=== PATIENT | female | born 1970 | race Caucasian/White ===

== ENCOUNTER 2017-07-17 08:35 | Emergency (ER) | payer SELFPAY | END 2017-07-17 09:00 | disposition home or self-care (01) | LOC: ERS 08:35 | DX: K02.9 Dental caries, unspecified (principal); F41.9 Anxiety disorder, unspecified; F32.9 Major depressive disorder, single episode, unspecified; F17.210 Nicotine dependence, cigarettes, uncomplicated | CPT/HCPCS: 99282 ==

== ENCOUNTER 2017-07-26 13:56 | Emergency (ER) | payer MEDICAID, SELFPAY ==
[2017-07-26 14:30] LABS: #Basophils 0.1 thou/uL (0.0-0.2); #Eosinphils 0.1 thou/uL (0.0-0.7); #Monocytes 0.5 thou/uL (0.11-0.59); #Neutrophils 5.8 thou/uL (1.40-6.50); %Basophils 0.9 % (0.0-1.0); %Eosinophils 0.6 % (0.0-10.0); %Lymphocytes 23.3 % (21.0-51.0); %Monocytes 5.7 % (0.0-10.0); Hematocrit 42.8 % (36.0-47.0); Mean Platelet Volume 6.8 fL (7.4-10.4); Red Blood Cell (RBC) Count 4.64 mill/uL (4.20-5.40); White Blood Cell (WBC) Count 8.4 thou/uL (4.8-10.8)
--- NOTE | 2017-07-26 14:53 | RAD ---
FRONTAL VIEW CHEST: Date: 07/26/17 COMPARISON: 06/01/11. INDICATION: Pain. FINDINGS: There is no consolidation, effusion, or pneumothorax. Cardiac silhouette is accentuated by portable t echnique. Chest otherwise grossly stable. IMPRESSION: No focal consolidation. POS: [facility]
[2017-07-26 14:57] LABS: ALT (SGPT) 12 U/L (8-55); AST (SGOT) 14 U/L (5-34); Alkaline Phosphatase 66 U/L (40-150); Anion Gap 13 mmol/L (10-20); BUN (Urea Nitrogen) 7 mg/dL (7.0-18.7); Bilirubin, Total 0.5 mg/dL (0.2-1.2); Calc. Creatinine Clearance 0 mL/min (70-130); Calcium 9.5 mg/dL (7.8-10.44); Carbon Dioxide 24 mmol/L (22-29); Chloride 105 mmol/L (98-107); Estimated GFR-MDRD 84; Globulin 3.5 g/dL (2.4-3.5); Protein, Total 7.6 g/dL (6.0-8.3); Troponin I 0.012 ng/mL (< 0.028)
== END 2017-07-26 16:52 | disposition home or self-care (01) ==
LOC: ERS 13:56
DX: R41.82 Altered mental status, unspecified (principal); T43.595A Adverse effect of other antipsychotics and neuroleptics, initial encounter; F41.9 Anxiety disorder, unspecified; F32.9 Major depressive disorder, single episode, unspecified; F20.9 Schizophrenia, unspecified; F17.210 Nicotine dependence, cigarettes, uncomplicated
CPT/HCPCS: 71010; 80053; 82553; 84484; 85025; 93005; 96360

== ENCOUNTER 2017-12-14 14:30 | Emergency (ER) | payer MEDICAID, SELFPAY ==
[2017-12-14] MEDS ORDERED: Lorazepam 2 MG/ML VIAL ONE (14:34)
[2017-12-14 15:12] LABS: #Basophils 0.1 thou/uL (0.0-0.2); #Eosinphils 0.1 thou/uL (0.0-0.7); #Monocytes 0.7 thou/uL (0.11-0.59); #Neutrophils 4.8 thou/uL (1.40-6.50); %Basophils 0.8 % (0.0-1.0); %Eosinophils 1.9 % (0.0-10.0); %Lymphocytes 25.5 % (21.0-51.0); %Monocytes 9.7 % (0.0-10.0); %Neutrophils 62.2 % (42.0-75.0); Hemoglobin 14.2 g/dL (12.0-16.0); Mean Corpuscular Hemoglobin 31.1 pg (27.0-31.0); Mean Corpuscular Volume 91.6 fl (81.0-99.0); Mean Platelet Volume 7.4 fL (7.4-10.4); Platelet Count 253 thou/uL (130-400); RBC Distribution Width 11.6 % (11.5-14.5); Red Blood Cell (RBC) Count 4.55 mill/uL (4.20-5.40); White Blood Cell (WBC) Count 7.7 thou/uL (4.8-10.8)
[2017-12-14 15:29] LABS: Bilirubin Negative (Negative); Blood, Urine Large (Negative); Clarity CLOUDY (Clear); Glucose, Urine (Dipstick) Negative (Negative); Leukocyte Negative (Negative); Nitrite Negative (Negative); Protein, Urine (Dipstick) 30 mg/dL (Neg-Trace); Specific Gravity, Urine 1.021 (1.002-1.036); Urobilinogen 0.2 mg/dL (0.2-1.0); pH, Urine 6.5 (5.0-9.0)
[2017-12-14 15:32] LABS: Bacteria/HPF None Seen HPF (None Seen); Hyaline Casts/LPF 4-6 HYALINE CAST LPF (0-3 Hyaline); RBC/HPF GREATER THAN 50-TNTC HPF (0-3)
--- NOTE | 2017-12-14 15:33 | CT ---
CT ABDOMEN AND PELVIS WITHOUT IV CONTRAST: Date: 12/14/17 Multiple axial tomograms obtained through abdomen and pelvis without IV contrast enhancement. HISTORY: Right flank pain. FINDINGS: Lung bases are clear. Liver, spleen, and pancreas are unremarkable. Mild right hydronephrosis is noted. There is mild columning of the right ureter. There is a small doreen culus in the mid right ureter measuring in the 3-4 mm range. Small bowel loops unremarkable. Images through the pelvis reveal a cystic mass in the upper right pelvis. There appear to be two javier cent cysts or possibly one larger loculated cystic mass measuring up to 5.0 cm. There is a dense calc ification along the edge of this mass with the calcification measuring up to 1.0 cm. This raises the possibility of a dermoid tumor given the appearance of calcification and complex nature. Uterus appea rs unremarkable by CT. No free fluid. IMPRESSION: 1. Small calculus in mid right ureter producing mild right hydronephrosis. 2. A complex cystic mass in the right pelvis with an internal calcification. Dermoid should be exclu ded. Consider further evaluation with elective pelvic MRI. POS: [facility]
[2017-12-14 15:39] LABS: Amphetamine Detected (NotDetected); Barbiturates Screen Not Detected (NotDetected); Benzodiazepine Screen Not Detected (NotDetected); Cocaine Metabolite Screen Not Detected (NotDetected); Medtox Control Line Valid? VALID (VALID); Medtox Reader # READER 4; Methadone Not Detected (NotDetected); Methamphetamine Not Detected (NotDetected); Opiate Screen Not Detected (NotDetected); Oxycodone Screen Not Detected (NotDetected); Phencyclidine (PCP) Not Detected (NotDetected); THC/Cannabinoid Screen Not Detected (NotDetected); Tricyclic Screen Not Detected (NotDetected)
[2017-12-14 15:42] LABS: Crystals/HPF 1+ AMORPH URATES HPF (Negative); Renal Epithelial None Seen HPF (0-3); Transitional Epithelial NONE SEEN HPF (0-3)
[2017-12-14 15:42] LABS: BHCG - Serum Negative (NEGATIVE); Pregs Control Background? CLEAR/WHITE (CLR/WHITE); Pregs Control Bar Appear? YES (CONTROL BAR)
[2017-12-14 15:51] LABS: ALT (SGPT) 10 U/L (8-55); AST (SGOT) 14 U/L (5-34); Alkaline Phosphatase 64 U/L (40-150); Anion Gap 16 mmol/L (10-20); BUN (Urea Nitrogen) 12 mg/dL (7.0-18.7); Bilirubin, Total 0.5 mg/dL (0.2-1.2); CK (CPK) 119 U/L (29-168); Calc. Creatinine Clearance 0 mL/min (70-130); Calcium 8.9 mg/dL (7.8-10.44); Carbon Dioxide 21 mmol/L (22-29); Chloride 108 mmol/L (98-107); Estimated GFR-MDRD 74; Glucose 91 mg/dL (70-105); Potassium 3.7 mmol/L (3.5-5.1); Sodium 140 mmol/L (136-145)
--- NOTE | 2017-12-14 16:33 | ULT ---
PELVIC ULTRASOUND INCLUDING TRANSABDOMINAL AND VASCULAR DUPLEX WITH COLOR AND SPECTRAL DOPPLER IMAGIN 12/14/17 HISTORY: 47-year-old female with history of right flank pain. COMPARISON: CT scan 12/14/17. The uterus measures 8.1 x 4.3 x 4.4 cm with an endometrium of 0.7 cm in thickness. Definitive normal right ovary and left ovaries were not seen. There is a somewhat septated appearing mostly cystic mass more so in the right adnexal region measuring 4.3 x 4.9 x 5.3 cm corresponding to the mass on prior CT. The calcification/ossification seen on the CT scan are not seen on this study. IMPRESSION: Nonspecific multiseptated cystic mass in the right adnexal region. This does not give any additional information to the prior CT. Based on the prior CT, this certainly could represent a cystic dermoid o r teratoma. Followup gynecologic consultation and for additional imaging. A followup MRI is recommend ed as per the prior CT. POS: [facility]
== END 2017-12-14 20:56 | disposition home or self-care (01) ==
LOC: ERS 14:30
DX: N13.2 Hydronephrosis with renal and ureteral calculous obstruction (principal); N83.9 Noninflammatory disorder of ovary, fallopian tube and broad ligament, unspecified; F19.10 Other psychoactive substance abuse, uncomplicated; F17.210 Nicotine dependence, cigarettes, uncomplicated; Z79.899 Other long term (current) drug therapy
CPT/HCPCS: 36415; 51701; 74176; 76856; 80053; 80306; 81003; 81015; 82550; 84703; 85025; 96361; 96374; 96375; A4353; J2060

== ENCOUNTER 2018-11-27 17:49 | Emergency (ER) | payer SELFPAY ==
[2018-11-27] MEDS ORDERED: Ketorolac Tromethamine 60 MG/2 ML VIAL ONE (18:22)
--- NOTE | 2018-11-27 18:56 | RAD ---
RIGHT HAND THREE VIEWS: HISTORY: Injury. Boxer fracture. COMPARISON: 02/27/2015 FINDINGS: Moderately displaced, comminuted fracture through the proximal 5th metacarpal, without overt dislocat ion. This fracture appears to extend into the hamate 5th metacarpal joint. Deformity of the proxima l phalanx of the 5th finger, evidence for a healed fracture. Incompletely united fracture through the mid scaphoid bone with minimal abnormal widening of the scap holunate space, although this appears to be stable from the prior study. IMPRESSION: 1. Acute, minimally comminuted, oblique fracture through the base of the 5th metacarpal, probably ex tending into the hamate 5th metacarpal joint, with up to 4 mm of displacement and some foreshortening , evidence for an old stable appearing mid scaphoid fracture and abnormal widening of the scapholunat e space. 2. Healed proximal phalanx fracture. POS: [facility]
== END 2018-11-27 19:55 | disposition home or self-care (01) ==
LOC: ERS 17:49
DX: S62.316A Displaced fracture of base of fifth metacarpal bone, right hand, initial encounter for closed fracture (principal); I10 Essential (primary) hypertension; F17.210 Nicotine dependence, cigarettes, uncomplicated; F41.9 Anxiety disorder, unspecified; F32.9 Major depressive disorder, single episode, unspecified; Z79.899 Other long term (current) drug therapy; X58.XXXA Exposure to other specified factors, initial encounter
CPT/HCPCS: 26600; 96372; J1885

== ENCOUNTER 2018-12-08 15:54 | Emergency (ER) | payer SELFPAY ==
[2018-12-08] MEDS ORDERED: Ketorolac Tromethamine 30 MG/ML VIAL ONE (17:21)
--- NOTE | 2018-12-08 18:30 | RAD ---
RIGHT WRIST THREE VIEWS: History: Pain, follow up injury. FINDINGS: Stent material stabilizing the wrist. There is a minimal displaced comminuted fracture involving the base of the fifth metacarpal with some bony callus. There is some displacement and minimal malalignme nt. This fracture appears to extend into the hamate metacarpal joint. Old stable navicular fracture. Minimal degenerative and osteoarthrosis changes. IMPRESSION: Minimally displaced oblique comminuted fracture through the base of the fifth metacarpal with some ramón ny callus. Minimal malalignment and foreshortening. Fracture does extend into the fifth metacarpal duenas mate joint. Stable old navicular fracture. Orthopedic follow up should be considered in regards to the proximal f ifth metacarpal fracture. POS: [facility]
--- NOTE | 2018-12-08 18:32 | RAD ---
RIGHT HAND THREE VIEWS: History: Follow up fracture. Comparison: 11-27-18 FINDINGS: Evidence for a healing fracture, comminuted with some foreshortening through the base of the fifth me tacarpal with some bony callus. Old healed deformity of the proximal phalanx of the fifth finger. Old stable navicular fracture. IMPRESSION: Comminuted fracture of the base of the fifth metacarpal with comminution with extension into the carp al metacarpal joint and some bony callus. Consider orthopedic follow up. Other findings as above. POS: [facility]
== END 2018-12-08 18:30 | disposition home or self-care (01) ==
LOC: ERS 15:54
DX: M25.531 Pain in right wrist (principal); F17.210 Nicotine dependence, cigarettes, uncomplicated; F41.9 Anxiety disorder, unspecified; F32.9 Major depressive disorder, single episode, unspecified; F20.9 Schizophrenia, unspecified; Z79.899 Other long term (current) drug therapy; Z79.891 Long term (current) use of opiate analgesic; W19.XXXA Unspecified fall, initial encounter
CPT/HCPCS: 29125; 96372; J1885

== ENCOUNTER 2019-04-30 08:20 | Outpatient (CLI) | payer OTHER ==
[2019-04-30 15:07] LABS: Mean Corpuscular HGB CONC 34.7 g/dL (32.0-36.0); Mean Corpuscular Hemoglobin 31.4 pg (27.0-31.0); Mean Corpuscular Volume 90.5 fL (78.0-98.0); Mean Platelet Volume 7.4 fL (7.4-10.4); Platelet Count 294 thou/uL (130-400); RBC Distribution Width 11.6 % (11.5-14.5); Red Blood Cell (RBC) Count 4.77 mill/uL (4.20-5.40); White Blood Cell (WBC) Count 6.6 thou/uL (4.8-10.8)
[2019-04-30 15:16] LABS: BHCG - Serum Negative (NEGATIVE); Pregs Control Background? CLEAR/WHITE (CLR/WHITE); Pregs Control Bar Appear? YES (CONTROL BAR)
[2019-04-30 15:21] LABS: Anion Gap 16 mmol/L (10-20); BUN (Urea Nitrogen) 11 mg/dL (7.0-18.7); Calc. Creatinine Clearance 0 mL/min (70-130); Calcium 9.5 mg/dL (7.8-10.44); Carbon Dioxide 28 mmol/L (22-29); Chloride 100 mmol/L (98-107); Estimated GFR-MDRD 77; Glucose 88 mg/dL (70-105); Potassium 3.7 mmol/L (3.5-5.1); Sodium 140 mmol/L (136-145)
== END 2019-04-30 08:21 | disposition home or self-care (01) ==
LOC: LABBT 08:20
PROVIDERS: ATTEND Obstetrics & Gynecology
DX: Z01.812 Encounter for preprocedural laboratory examination (principal); N83.8 Other noninflammatory disorders of ovary, fallopian tube and broad ligament
CPT/HCPCS: 80048; 84703; 85027; 86850; 86900; 86901; 93005; 93010

== ENCOUNTER 2019-05-06 11:53 | Day surgery (SDC) | payer OTHER ==
[2019-04-30 13:49] VITALS: BMI 24.0
--- NOTE | 2019-05-06 07:33 | HP ---
REASON FOR ADMISSION: Complex right adnexal mass. SCHEDULED PROCEDURE: Laparoscopic right salpingo-oophorectomy with da Re. HISTORY OF PRESENT ILLNESS: Ms. Saravia is a 48-year-old 4, para 2, x2, who first came to see me in November. She has had a persistent complex right adnexal mass that seems to be consistent with a small dermoid in her right ovary with calcifications and a persistent hydrosalpinx. No free fluid was noted. OBSTETRICAL AND GYNECOLOGICAL HISTORY: x2. No history of dysplasia or STD. No family history of ovarian cancer. No bloating or change in bowel or bladder habits. MEDICAL HISTORY: None. SURGICAL HISTORY: Tubal ligation. ALLERGIES: DENIES. MEDICATIONS: Hydrochlorothiazide p.r.n. SOCIAL HISTORY: The patient is a tobacco user. FAMILY HISTORY: Noncontributory. REVIEW OF SYSTEMS: Noncontributory. PHYSICAL EXAMINATION: GENERAL: White female. VITAL SIGNS: 5 feet 11, 193, BMI 27. Blood pressure 140/84, pulse 87. HEENT: Within normal limits. LUNGS: Clear to auscultation bilaterally. HEART: Regular rhythm. BREASTS: Without masses bilaterally. ABDOMEN: Soft, nontender without rebound or guarding. PELVIC: Vulva without lesions. Vagina without discharge. Cervix parous. Uterus; anteverted, smooth, deviated slightly to the left. Palpable fullness on the right with a 5 cm mass, nontender. EXTREMITIES: No clubbing, cyanosis, or edema. DIAGNOSTIC STUDIES: Ultrasound with findings as noted. IMPRESSION: Complex hydrosalpinx with possible dermoid on the right, persistent. PLAN: Laparoscopic right salpingo-oophorectomy with da Re. The patient understands risks and benefits of procedure. We will administer appropriate antibiotic and DVT prophylaxis. Job ID: [id number]
[2019-05-06] MEDS ORDERED: Fentanyl 100 MCG/2 ML VIAL ONE (13:24)
[2019-05-06] MEDS ORDERED: Bupivacaine HCl 0.5%/Epinephrine 1:200,000/PF 30 ml Vial ONE (13:24)
[2019-05-06] MEDS ORDERED: Famotidine/PF 20 mg/2ml Vial ONE (13:32)
[2019-05-06] MEDS ORDERED: Midazolam HCl 2 mg/2 ml Vial ONE (13:32)
[2019-05-06] MEDS ORDERED: CeleCOXIB 100 MG CAP ONE (13:32)
[2019-05-06] MEDS ORDERED: Gabapentin 300 MG CAP ONE (13:32)
[2019-05-06] MEDS ORDERED: HYDROcodone/Acetaminophen 5/325 mg Tablet ONE (18:26)
--- NOTE | 2019-05-06 21:01 | OP ---
DATE OF PROCEDURE: 05/06/2019 PREOPERATIVE DIAGNOSIS: Complex right adnexal mass with calcifications suspicious for hydrosalpinx with possible dermoid. POSTOPERATIVE DIAGNOSES: Normal appearing right fallopian tube with complex cystic right ovary with adhesions to pelvic sidewall, possible dermoid versus granulomatous disease of the ovary. PROCEDURE: Da Re laparoscopic right salpingo-oophorectomy. EXHIBIT CLEANER: MIKE Colon. ANESTHESIA: General endotracheal. ESTIMATED BLOOD LOSS: Less than 10 mL. COMPLICATIONS: None. OPERATIVE FINDINGS: 1. Normal-appearing uterus and left tube and ovary. 2. Right tube within normal limits with adherent multi-cystic right ovary with clear fluid noted in the posterior ovarian fossa along the broad ligament. 3. Normal-appearing ureter on the right. 4. Hemostasis, clear urine at the end of the procedure. DISPOSITION: Recovery room in good condition. DESCRIPTION OF PROCEDURE: After obtaining appropriate informed consent, the patient was taken to the operating room. Appropriate antibiotic and DVT prophylaxis were achieved. The patient was prepped and draped in dorsal lithotomy in Ancelmo stirrups. Sliding speculum was placed in the vagina. Cervix was identified. Hulka manipulator was placed inside. Patel catheter was placed. Speculum was removed from the patient. Blocker Hand changed gloves, turned his attention to abdominal portion of the procedure. A 5 mL of Marcaine was injected at the base of the umbilicus, and a 12 mm skin incision was made. Veress needle was placed inside the abdominal cavity. Insufflation was carried out with carbon dioxide for a maximum pressure of 15 voluming approximately 3.5 L. An 11 mm Mg balloon trocar was placed without difficulty. Inspection confirmed entry into the peritoneal cavity without trauma to the underlying viscera. The right and left lateral da Re trocars were placed under direct visualization as well as 5 mm clinical trials assistant port in the right upper quadrant. The patient was placed in steep Trendelenburg position and the da Re was docked. Monopolar scissors were placed in the right hand and bipolar fenestrated forceps in the left. Findings as noted in the operative findings were noted. The fallopian tube on the right was taken off, coagulating the mesosalpinx and transecting it. The IP was easily identified on the right. The ureters crossing over the pelvic brim and going down to the pelvis and going underneath the uterine vessel on the right was identified as well. This was noted to be approximately 1 cm slightly more lateral to the most lateral aspect of the adhesions of the right ovary. The utero-ovarian ligament was easily identified on the right as well. It was coagulated and transected. The IP was then coagulated and transected adjacent to the ovary. The ovary was grasped and was bluntly and sharply dissected off the pelvic sidewall of this level of the adhesions using monopolar scissors and traction. There was noted to be overlying the uterine vessels on the right. After they had crossed over the ureter, we were inserting along the cardinal ligament posteriorly. Surgeon using meticulous technique was able to dissect the ovary and its adhesions free from the vessel without interrupting it. The specimen was completely amputated and placed in the cul-de-sac of Bc for retrieval. Da Re robot was undocked after removing the instruments, and a 10 mm retrieval sac was placed in the abdominal cavity with the 8 mm scope placed laterally. Both the tube and ovary were placed in the sac and it was retrieved through the umbilical trocar site. The abdomen was desufflated of carbon dioxide. All trocars were removed. Fascia at the umbilicus was reapproximated using 0 Vicryl on a UR5 needle. Skin was reapproximated x4 using 4-0 Monocryl and Dermabond. Hulka was removed from the vagina. The vagina was noted to be dry. Patel catheter was removed. The patient was awakened, extubated, and taken to recovery room in good condition. Job ID: [id number]
== END 2019-05-06 19:20 | disposition home or self-care (01) ==
LOC: EEVIPCON 11:53 → SDC 11:53 → EEVIPCON 13:30 → SDC 19:20
PROVIDERS: ATTEND Obstetrics & Gynecology
PROC: 0UT04ZZ Resection of Right Ovary, Percutaneous Endoscopic Approach (ICD-10-PCS; principal; 2019-05-06)
PROC: 0UT54ZZ Resection of Right Fallopian Tube, Percutaneous Endoscopic Approach (ICD-10-PCS; principal; 2019-05-06)
DX: D27.0 Benign neoplasm of right ovary (principal); D28.2 Benign neoplasm of uterine tubes and ligaments
CPT/HCPCS: 88307; J0670; J0690; J2250; J3010; S0028

== ENCOUNTER 2019-05-09 16:52 | Emergency (ER) | payer SELFPAY ==
[~2019-05-09 16:52] MED LIST: ISOVUE-370 76%-LOCM 1 ML ONE
[2019-05-09 18:03] LABS: Bacteria/HPF 3+ HPF (None Seen); Bilirubin Negative (Negative); Blood, Urine 2+ (Negative); Clarity Turbid (Clear); Glucose, Urine (Dipstick) Normal (Negative); Leukocyte Negative Leu/uL (Negative); Nitrite Negative (Negative); Protein, Urine (Dipstick) Negative (Neg-Trace); Squamous Epithelial 0-3 HPF (0-3); Urobilinogen Normal mg/dL (Less than 2)
[2019-05-09] MEDS ORDERED: Ondansetron PF 4 MG/2 ML Vial ONE (18:23)
[2019-05-09] MEDS ORDERED: Morphine 4 MG/ML VIAL ONE (18:23)
--- NOTE | 2019-05-09 18:27 | CT ---
CT OF ABDOMEN AND PELVIS PERFORMED WITH CONTRAST ENHANCEMENT: 05/09/19 HISTORY: Patient had laparoscopic surgery on Saturday for ovarian cyst. Reports vaginal bleeding. Abdominal p ain. Lung bases are clear. The liver and spleen show no focal abnormalities. Spleen is 11.3 cm in length. The right lobe of the liver is somewhat elongated. Pancreas and gallbladder regions appear unremarkable. Right and left adrenal glands and right and left kidneys are normal in size. No obstruction. No free fluid seen within the abdomen. Postop changes are seen. There is air in the paraumbilical region. There is no evidence of any signif icant free fluid within the pelvis. No signs of any type of pelvic hematoma. Complex cystic lesion in volving the right ovary no longer definitively seen on this exam. Appendix region appears unremarkabl e. IMPRESSION: 1. No acute findings of the abdomen or pelvis. 2. Borderline spleen size. POS: [facility]
[2019-05-09 18:44] LABS: #Eosinphils 0.1 thou/uL (0.0-0.7); #Lymphocytes 1.7 thou/uL (1.20-3.40); #Monocytes 0.4 thou/uL (0.11-0.59); #Neutrophils 3.4 thou/uL (1.40-6.50); %Basophils 0.6 % (0.0-1.0); %Eosinophils 1.7 % (0.0-10.0); %Lymphocytes 30.2 % (21.0-51.0); %Monocytes 6.7 % (0.0-10.0); %Neutrophils 60.8 % (42.0-75.0); Hemoglobin 11.3 g/dL (12.0-16.0); Mean Corpuscular HGB CONC 34.2 g/dL (32.0-36.0); Mean Corpuscular Hemoglobin 31.5 pg (27.0-31.0); Mean Corpuscular Volume 92.2 fL (78.0-98.0); Mean Platelet Volume 7.3 fL (7.4-10.4); Platelet Count 221 thou/uL (130-400); RBC Distribution Width 11.5 % (11.5-14.5); Red Blood Cell (RBC) Count 3.59 mill/uL (4.20-5.40); White Blood Cell (WBC) Count 5.5 thou/uL (4.8-10.8)
[2019-05-09 19:09] LABS: ALT (SGPT) 22 U/L (8-55); AST (SGOT) 22 U/L (5-34); Albumin 3.5 g/dL (3.5-5.0); Alkaline Phosphatase 63 U/L (40-110); Anion Gap 9 mmol/L (10-20); BUN (Urea Nitrogen) 9 mg/dL (7.0-18.7); Bilirubin, Total 0.3 mg/dL (0.2-1.2); Calc. Creatinine Clearance 0 mL/min (70-130); Calcium 8.5 mg/dL (7.8-10.44); Carbon Dioxide 27 mmol/L (22-29); Chloride 108 mmol/L (98-107); Estimated GFR-MDRD 60; Globulin 2.5 g/dL (2.4-3.5); Glucose 92 mg/dL (70-105); Lipase 25 U/L (8-78); Potassium 3.9 mmol/L (3.5-5.1); Sodium 140 mmol/L (136-145)
== END 2019-05-09 19:47 | disposition home or self-care (01) ==
LOC: ERS 16:52
DX: N93.9 Abnormal uterine and vaginal bleeding, unspecified (principal); G89.29 Other chronic pain; F41.9 Anxiety disorder, unspecified; F32.9 Major depressive disorder, single episode, unspecified; F20.9 Schizophrenia, unspecified; F17.210 Nicotine dependence, cigarettes, uncomplicated; Z79.899 Other long term (current) drug therapy; Z79.1 Long term (current) use of non-steroidal anti-inflammatories (NSAID)
CPT/HCPCS: 74177; 80053; 81003; 81015; 83690; 85025; 96361; 96374; 96375; J2270; J2405

== ENCOUNTER 2019-06-28 12:22 | Emergency (ER) | payer SELFPAY ==
--- NOTE | 2019-06-28 13:06 | RAD ---
Exam:2 views right forearm HISTORY: Fall. Pain. COMPARISON: None FINDINGS: Undisplaced distal ulnar diaphyseal fracture. Chronic changes of the base of the fifth metacarpal IMPRESSION: Distal ulnar fracture.
--- NOTE | 2019-06-28 13:21 | CT ---
CT BRAIN NONCONTRAST: DATE: 06/28/2019 HISTORY: 48-year-old female status post acute head trauma due to fall from horse 3 days ago. Persistent posttr aumatic headache. FINDINGS: There is no evidence of acute intra-axial or extra-axial hemorrhage. There is no midline shift or any other mass effect. There is no extra-axial fluid collection. There is no evidence of obstructive hydrocephalus. Calvarium is intact. Moderately large region of encephalomalacia and gliosis in the le ft cerebellar hemisphere IMPRESSION: 1. No acute intracranial findings. 2. 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
--- NOTE | 2019-06-28 13:23 | CT ---
CT CERVICAL SPINE WITHOUT CONTRAST: HISTORY: Trauma. Pain.. COMPARISON: None. FINDINGS: No craniocervical dissociation. Appropriate alignment of the lateral masses of C1 and C2. Intact odon toid process Appropriate alignment of the facets. Straightening of normal cervical lordosis may be due to patient position, muscle spasm or cervical co llar. Current study does not assess for ligamentous injury. There are bilateral remote pars defects at T7. No significant associated spondylolisthesis. Soft tissue neck structures: No mass, lymphadenopathy or hematoma. No prevertebral soft tissue swelli ng. Upper mediastinum and lung apices: Unremarkable. Central spinal canal: Neural foramina and central spinal canal are patent. Evaluation is limited by isrrael alba. Vertebral bodies: Cervical spine vertebral body height is maintained. No fracture. IMPRESSION: 1. No evidence of fracture. Remote bilateral facet fractures at C7 without associated spondylolisthes is. 2. Straightening of normal cervical lordosis as above. Transcribed Date/Time: 06/28/2019 1:30 PM
--- NOTE | 2019-06-28 13:31 | CT ---
MAXILLOFACIAL CT WITHOUT CONTRAST: HISTORY: Fall. Hit right forearm on countertop. Posttraumatic pain. COMPARISON: None. FINDINGS: Unremarkable brain parenchyma. Bilateral ocular lenses are appropriately located. Both globes are intact. Retrobulbar fat is preserv ed. Symmetric attenuation of the optic nerves and ocular rectus muscles. Adequate aeration of the visualized paranasal sinuses and mastoid air cells. Intact pterygoid plates. Intact zygomatic arches. Maxilla and mandible do not demonstrate any posttraumatic change. Extensive dental caries. No obvious masses in the oral cavity. Midline fatty raphae of the tongue is preserved. Bilaterally the ostiomeatal complexes are patent. Sandra bullosa involving the left and right superio r turbinates. No evidence of fracture with regards to the osseous margins of the sinuses or orbits. IMPRESSION: No posttraumatic changes. Transcribed Date/Time: 06/28/2019 1:36 PM
[2019-06-28] MEDS ORDERED: Ketorolac Tromethamine 30 MG/ML VIAL ONE (14:16)
== END 2019-06-28 14:30 | disposition home or self-care (01) ==
LOC: SCSER 12:22
DX: S52.201A Unspecified fracture of shaft of right ulna, initial encounter for closed fracture (principal); S09.90XA Unspecified injury of head, initial encounter; F41.9 Anxiety disorder, unspecified; F32.9 Major depressive disorder, single episode, unspecified; F20.9 Schizophrenia, unspecified; F17.210 Nicotine dependence, cigarettes, uncomplicated; Z79.899 Other long term (current) drug therapy; W19.XXXA Unspecified fall, initial encounter
CPT/HCPCS: 29105; 70450; 70486; 72125; 96372; J1885

== ENCOUNTER 2020-07-20 16:29 | Emergency (ER) | payer OTHER ==
[2020-07-20] MEDS ORDERED: risperiDONE 1 MG TAB ONE (19:17)
[2020-07-20] MEDS ORDERED: risperiDONE 1 MG TAB PO SCH (19:30)
[2020-07-20] MEDS ORDERED: RisperDAL M-TAB 1 MG TAB PO SCH (19:30)
[2020-07-20 19:39] LABS: ALT (SGPT) 13 U/L (8-55); AST (SGOT) 20 U/L (5-34); Acetaminophen Less than 6.0 mcg/mL (10.0-30.0); Albumin 4.3 g/dL (3.5-5.0); Alcohol Less than 10 mg/dL (Less than 10); Alkaline Phosphatase 68 U/L (40-110); Anion Gap 15 mmol/L (10-20); BUN (Urea Nitrogen) 12 mg/dL (7.0-18.7); Bilirubin, Total 0.8 mg/dL (0.2-1.2); Calc. Creatinine Clearance 0 mL/min (70-130); Calcium 9.7 mg/dL (7.8-10.44); Carbon Dioxide 25 mmol/L (22-29); Chloride 100 mmol/L (98-107); Globulin 3.5 g/dL (2.4-3.5); Glucose 96 mg/dL (70-105); Potassium 3.3 mmol/L (3.5-5.1); Protein, Total 7.8 g/dL (6.0-8.3); Salicylate Less than 8.0 mg/dL (15.0-30.0); Sodium 137 mmol/L (136-145)
[2020-07-20 19:41] LABS: Bilirubin Negative (Negative); Blood, Urine Negative (Negative); Clarity Clear (Clear); Glucose, Urine (Dipstick) Normal (Negative); Ketone, Urine Negative (Negative); Leukocyte Negative Leu/uL (Negative); Nitrite Negative (Negative); Protein, Urine (Dipstick) 10 mg/dL (Neg-Trace); Specific Gravity, Urine 1.019 (1.002-1.036); Urobilinogen Normal mg/dL (Less than 2); pH, Urine 6.5 (5.0-9.0)
[2020-07-20 21:05] LABS: Pregnancy Test - Urine (BHCG) Negative (Negative); Pregu Control Background? CLEAR/WHITE (CLR/WHITE); Pregu Control Bar Appear? YES (CONTROL BAR); Specific Gravity 1.019 (1.002-1.036)
[2020-07-20 22:25] LABS: #Basophils 0.1 thou/uL (0.0-0.2); #Lymphocytes 1.4 thou/uL (1.20-3.40); #Monocytes 0.7 thou/uL (0.11-0.59); #Neutrophils 4.4 thou/uL (1.40-6.50); %Basophils 1.2 % (0.0-1.0); %Eosinophils 0.7 % (0.0-10.0); %Lymphocytes 21.2 % (21.0-51.0); %Monocytes 10.3 % (0.0-10.0); %Neutrophils 66.7 % (42.0-75.0); Hemoglobin 14.6 g/dL (12.0-16.0); Mean Corpuscular HGB CONC 35.4 g/dL (32.0-36.0); Mean Corpuscular Hemoglobin 31.7 pg (27.0-31.0); Mean Corpuscular Volume 89.4 fL (78.0-98.0); Mean Platelet Volume 7.5 fL (7.4-10.4); Platelet Count 216 thou/uL (130-400); RBC Distribution Width 11.2 % (11.5-14.5); Red Blood Cell (RBC) Count 4.61 mill/uL (4.20-5.40); White Blood Cell (WBC) Count 6.6 thou/uL (4.8-10.8)
== END 2020-07-21 00:08 | disposition home or self-care (01) ==
LOC: ERS 16:29
DX: F20.9 Schizophrenia, unspecified (principal); I10 Essential (primary) hypertension; B19.20 Unspecified viral hepatitis C without hepatic coma; Z87.891 Personal history of nicotine dependence; Z79.899 Other long term (current) drug therapy
CPT/HCPCS: 80053; 80307; 81003; 81025; 84443; 85025; 93005

== ENCOUNTER 2020-09-15 20:33 | Emergency (ER) ==
--- NOTE | 2020-09-15 20:58 | RAD ---
Exam: XR Ankle Lt 3 View STANDARD HISTORY: Injury to left ankle after stepping in a hole. Patient states felt a pop. COMPARISON: 01/30/2016 FINDINGS: The ankle mortise is congruent. No fracture or dislocation is identified. Subcutaneous soft tissue swelling is seen at the lateral and anterior aspect of the left ankle. No ot her interval change from prior study. IMPRESSION: Subcutaneous soft tissue swelling without evidence of a fracture.
== END 2020-09-15 22:10 | disposition home or self-care (01) ==
LOC: ERS 20:33
DX: S93.402A Sprain of unspecified ligament of left ankle, initial encounter (principal); B19.20 Unspecified viral hepatitis C without hepatic coma; I10 Essential (primary) hypertension; F17.210 Nicotine dependence, cigarettes, uncomplicated; Z79.899 Other long term (current) drug therapy; X50.1XXA Overexertion from prolonged static or awkward postures, initial encounter

== ENCOUNTER 2020-10-09 19:17 | Emergency (ER) | payer SELFPAY ==
[2020-10-09 19:38] LABS: Bilirubin Negative (Negative); Blood, Urine Negative (Negative); Clarity Clear (Clear); Glucose, Urine (Dipstick) Normal (Negative); Ketone, Urine Negative (Negative); Leukocyte Negative Leu/uL (Negative); Nitrite Negative (Negative); Protein, Urine (Dipstick) Negative (Neg-Trace); Specific Gravity, Urine 1.015 (1.002-1.036); Urobilinogen Normal mg/dL (Less than 2); pH, Urine 5.5 (5.0-9.0)
[2020-10-09 20:26] LABS: #Basophils 0.1 thou/uL (0.0-0.2); #Eosinphils 0.1 thou/uL (0.0-0.7); #Lymphocytes 2.2 thou/uL (1.20-3.40); #Monocytes 0.8 thou/uL (0.11-0.59); #Neutrophils 4.8 thou/uL (1.40-6.50); %Eosinophils 1.9 % (0.0-10.0); %Lymphocytes 27.2 % (21.0-51.0); %Monocytes 10.2 % (0.0-10.0); %Neutrophils 59.7 % (42.0-75.0); Hemoglobin 13.3 g/dL (12.0-16.0); Mean Corpuscular HGB CONC 35.2 g/dL (32.0-36.0); Mean Corpuscular Hemoglobin 32.5 pg (27.0-31.0); Mean Corpuscular Volume 92.2 fL (78.0-98.0); Mean Platelet Volume 7.2 fL (7.4-10.4); Platelet Count 268 thou/uL (130-400); RBC Distribution Width 11.7 % (11.5-14.5)
[2020-10-09 20:39] LABS: ALT (SGPT) 11 U/L (8-55); AST (SGOT) 11 U/L (5-34); Albumin 3.8 g/dL (3.5-5.0); Alkaline Phosphatase 62 U/L (40-110); Anion Gap 14 mmol/L (10-20); BUN (Urea Nitrogen) 8 mg/dL (7.0-18.7); Bilirubin, Total 0.3 mg/dL (0.2-1.2); Calc. Creatinine Clearance 0 mL/min (70-130); Carbon Dioxide 29 mmol/L (22-29); Chloride 103 mmol/L (98-107); Globulin 3.1 g/dL (2.4-3.5); Glucose 83 mg/dL (70-105); Potassium 3.6 mmol/L (3.5-5.1); Protein, Total 6.9 g/dL (6.0-8.3); Sodium 142 mmol/L (136-145)
--- NOTE | 2020-10-09 22:12 | CT ---
Exam: Abdomen CT without contrast Pelvic CT without contrast HISTORY: Abdominal pain. Bilateral back pain. Symptoms x2 weeks. Urinary urgency. COMPARISON: None FINDINGS: Abdomen CT: Lung bases:Clear Heart size: Normal heart size Aorta: Normal caliber. No periaortic fat stranding Solid organs: Limited evaluation by the absence of intravenous contrast administration. Grossly no so lid organ abnormality Lymph nodes: No gastrohepatic, retrocrural or periportal lymphadenopathy Gallbladder: Contracted due to nonfasting state Mesentery: No mass, lymphadenopathy, free air or free fluid Kidneys: Bilaterally, no hydronephrosis, nephrolithiasis or perinephric fat stranding. Bilateral uret ers have a normal caliber. No hydroureter, periureteral fat stranding or ureterolithiasis. Alimentary canal: Limited evaluation by the absence of oral contrast. No evidence of a bowel obstruct ion. Normal ileocecal junction. Normal caliber appendix. Scattered fecal material in a nondistended, nondilated colon. CT PELVIS: No mass, adenopathy, free air or free fluid. 'S reproductive organs are grossly unremarkable Urinary bladder: Unremarkable. Osseous structures: No lytic or blastic lesions in the osseous structures. Vacuum disc phenomenon at L4-L5. Partial sacralization of L5 with pseudoarthrosis of the left and right L5 ala and the adjacent sacrum. Vacuum disc phenomenon the distal thoracic spine is noted. No evidence of a acute fr acture. IMPRESSION: 1. No acute abnormality in the abdomen or pelvis 2. No evidence of obstructive uropathy 3. Normal caliber appendix.
[2020-10-09] MEDS ORDERED: Ketorolac Tromethamine 30 MG/ML VIAL ONE (22:32)
== END 2020-10-09 22:47 | disposition home or self-care (01) ==
LOC: ERS 19:17
DX: K59.00 Constipation, unspecified (principal); I10 Essential (primary) hypertension; F17.210 Nicotine dependence, cigarettes, uncomplicated; Z79.899 Other long term (current) drug therapy
CPT/HCPCS: 36415; 74176; 80053; 81003; 83690; 85025; 87077; 87086; 87480; 87510; 87660; 96372; J1885

== ENCOUNTER 2021-01-31 18:52 | Observation (INO) | payer SELFPAY ==
[2021-01-31 19:44] LABS: #Lymphocytes 1.5 thou/uL (1.20-3.40); #Monocytes 1.1 thou/uL (0.11-0.59); #Neutrophils 10.3 thou/uL (1.40-6.50); %Basophils 0.2 % (0.0-1.0); %Eosinophils 0.3 % (0.0-10.0); %Lymphocytes 11.6 % (21.0-51.0); %Monocytes 8.3 % (0.0-10.0); %Neutrophils 79.6 % (42.0-75.0); Hemoglobin 13.9 g/dL (12.0-16.0); Mean Corpuscular HGB CONC 35.7 g/dL (32.0-36.0); Mean Corpuscular Hemoglobin 30.9 pg (27.0-31.0); Mean Corpuscular Volume 86.7 fL (78.0-98.0); Mean Platelet Volume 7.2 fL (7.4-10.4); Platelet Count 303 thou/uL (130-400); RBC Distribution Width 11.3 % (11.5-14.5); White Blood Cell (WBC) Count 12.9 thou/uL (4.8-10.8)
[2021-01-31 20:07] LABS: ALT (SGPT) 26 U/L (8-55); AST (SGOT) 46 U/L (5-34); Acetaminophen Less than 6.0 mcg/mL (10.0-30.0); Albumin 4.3 g/dL (3.5-5.0); Alcohol Less than 10 mg/dL (Less than 10); Alkaline Phosphatase 72 U/L (40-110); Anion Gap 18 mmol/L (10-20); BUN (Urea Nitrogen) 23 mg/dL (7.0-18.7); Bilirubin, Total 0.8 mg/dL (0.2-1.2); Calc. Creatinine Clearance 0 mL/min (70-130); Calcium 9.3 mg/dL (7.8-10.44); Carbon Dioxide 22 mmol/L (22-29); Chloride 98 mmol/L (98-107); Globulin 3.8 g/dL (2.4-3.5); Glucose 101 mg/dL (70-105); Protein, Total 8.1 g/dL (6.0-8.3); Salicylate Less than 8.0 mg/dL (15.0-30.0); Sodium 135 mmol/L (136-145)
[2021-01-31] MEDS ORDERED: Haloperidol Lactate 5 MG/ML VIAL ONE (20:20)
[2021-01-31] MEDS ORDERED: Lorazepam 2 MG/ML VIAL ONE (20:20)
[2021-01-31] MEDS ORDERED: Potassium Chloride 20 MEQ TAB ONE (21:50)
[2021-02-01 00:25] LABS: Anion Gap 12 mmol/L (10-20); BUN (Urea Nitrogen) 20 mg/dL (7.0-18.7); Calc. Creatinine Clearance 0 mL/min (70-130); Carbon Dioxide 24 mmol/L (22-29); Chloride 105 mmol/L (98-107); Glucose 115 mg/dL (70-105); Potassium 2.6 mmol/L (3.5-5.1); Sodium 138 mmol/L (136-145)
[2021-02-01] MEDS ORDERED: Potassium Chloride 20 MEQ/100 ML PREMIX BAG ONE (00:45)
[2021-02-01 02:04] LABS: Bacteria/HPF None Seen HPF (None Seen); Bilirubin Negative (Negative); Blood, Urine Negative (Negative); Clarity Clear (Clear); Glucose, Urine (Dipstick) Normal (Negative); Ketone, Urine Negative (Negative); Leukocyte 75 Leu/uL (Negative); Nitrite Negative (Negative); Protein, Urine (Dipstick) 20 mg/dL (Neg-Trace); RBC/HPF None Seen HPF (0-3); Squamous Epithelial 0-3 HPF (0-3); Urobilinogen Normal mg/dL (Less than 2); pH, Urine 5.5 (5.0-9.0)
[2021-02-01 02:26] LABS: Amphetamine Detected (NotDetected); Barbiturates Screen Not Detected (NotDetected); Benzodiazepine Screen Not Detected (NotDetected); Cocaine Metabolite Screen Not Detected (NotDetected); Medtox Control Line Valid? VALID (VALID); Medtox Reader # READER 4; Methadone Not Detected (NotDetected); Methamphetamine Detected (NotDetected); Opiate Screen Detected (NotDetected); Oxycodone Screen Not Detected (NotDetected); Phencyclidine (PCP) Not Detected (NotDetected); THC/Cannabinoid Screen Not Detected (NotDetected); Tricyclic Screen Not Detected (NotDetected)
[2021-02-01 02:27] LABS: Pregnancy Test - Urine (BHCG) Negative (Negative); Pregu Control Background? CLEAR/WHITE (CLR/WHITE); Pregu Control Bar Appear? YES (CONTROL BAR)
[2021-02-01] MEDS ORDERED: Potassium Chloride 20 MEQ TAB PO SCH (07:00)
[2021-02-01] MEDS ORDERED: Potassium Chloride 20 MEQ TAB ONE (08:58)
[2021-02-01] MEDS ORDERED: AMOXicillin 250 MG CAP ONE ×2 (09:29→14:48)
[2021-02-01] MEDS ORDERED: Benzocaine (Dental) 7 GM TUBE TOP PRN (09:32)
[2021-02-01] MEDS ORDERED: Sodium Chloride 0.9% 1,000 ML IV SCH (09:45)
[2021-02-01] MEDS: AMOXicillin 250 MG CAP PO SCH ×2 (09:47→14:55)
[2021-02-01 11:56] LABS: SARS-CoV-2 PCR by NAA Not Detected (NotDetected)
[2021-02-01 14:51] LABS: Hemoglobin 12.1 g/dL (12.0-16.0); Mean Corpuscular HGB CONC 35.4 g/dL (32.0-36.0); Mean Corpuscular Volume 87.7 fL (78.0-98.0); Mean Platelet Volume 7.5 fL (7.4-10.4); Platelet Count 280 thou/uL (130-400); RBC Distribution Width 11.4 % (11.5-14.5); Red Blood Cell (RBC) Count 3.89 mill/uL (4.20-5.40); White Blood Cell (WBC) Count 5.4 thou/uL (4.8-10.8)
[2021-02-01 16:16] LABS: Anion Gap 10 mmol/L (10-20); BUN (Urea Nitrogen) 14 mg/dL (7.0-18.7); Calc. Creatinine Clearance 0 mL/min (70-130); Calcium 8.4 mg/dL (7.8-10.44); Carbon Dioxide 22 mmol/L (22-29); Chloride 110 mmol/L (98-107); Glucose 127 mg/dL (70-105); Potassium 3.3 mmol/L (3.5-5.1); Sodium 139 mmol/L (136-145)
[2021-02-01 16:17] VITALS: BP 133/70; TEMP 98.4; BMI 26.1
== END 2021-02-01 19:37 | disposition home or self-care (01) ==
LOC: ERS 18:52 → ERHOLD 02-01 05:24 → 2NO 02-01 15:40
PROVIDERS: ADMIT Student in an Organized Health Care Education/Training Program; ATTEND Student in an Organized Health Care Education/Training Program
DX: G92 Toxic encephalopathy (principal); T43.625A Adverse effect of amphetamines, initial encounter; D72.829 Elevated white blood cell count, unspecified; E87.6 Hypokalemia; N17.9 Acute kidney failure, unspecified; R74.01 Elevation of levels of liver transaminase levels; F17.210 Nicotine dependence, cigarettes, uncomplicated; F15.10 Other stimulant abuse, uncomplicated; F25.9 Schizoaffective disorder, unspecified; I10 Essential (primary) hypertension; Z20.822 Contact with and (suspected) exposure to COVID-19; Z79.82 Long term (current) use of aspirin; Z79.899 Other long term (current) drug therapy
CPT/HCPCS: 36415; 51701; 71045; 80053; 80306; 80307; 81003; 81015; 81025; 83735; 84132; 84443; 85025; 85027; 93005; 94760; 96365; 96366; 96372; G0378; J1630; J2060; J3480; U0003; U0005

== ENCOUNTER 2021-02-20 11:19 | Emergency (ER) | payer SELFPAY | END 2021-02-20 11:57 | disposition left against medical advice (07) | LOC: ERS 11:19 | DX: M25.561 Pain in right knee (principal); F20.0 Paranoid schizophrenia | CPT/HCPCS: 99284 ==

== ENCOUNTER 2021-04-03 14:41 | Inpatient (IN) | payer MEDICAID ==
[2021-04-03] MEDS ORDERED: Vancomycin 1 GM/200 ML BAG ONE (15:14)
[2021-04-03] MEDS ORDERED: risperiDONE 1 MG TAB ONE (15:14)
[2021-04-03] MEDS ORDERED: Piperacillin/Tazobactam 3.375 GM VIAL ONE (15:14)
[2021-04-03] MEDS ORDERED: Acetaminophen 500 MG TAB ONE (15:14)
[2021-04-03] MEDS ORDERED: Morphine 4 MG/ML VIAL ONE (15:30)
[2021-04-03] MEDS ORDERED: Lorazepam 2 MG/ML VIAL ONE (15:30)
[2021-04-03] MEDS ORDERED: Ondansetron PF 4 MG/2 ML Vial ONE (15:30)
[2021-04-03 15:40] LABS: #Lymphocytes 1.8 thou/uL (1.20-3.40); #Monocytes 1.1 thou/uL (0.11-0.59); #Neutrophils 11.9 thou/uL (1.40-6.50); %Basophils 0.2 % (0.0-1.0); %Eosinophils 0.2 % (0.0-10.0); %Lymphocytes 12.2 % (21.0-51.0); %Monocytes 7.2 % (0.0-10.0); %Neutrophils 80.2 % (42.0-75.0); Hemoglobin 12.4 g/dL (12.0-16.0); Mean Corpuscular HGB CONC 33.2 g/dL (32.0-36.0); Mean Corpuscular Hemoglobin 29.4 pg (27.0-31.0); Mean Corpuscular Volume 88.4 fL (78.0-98.0); Mean Platelet Volume 6.8 fL (7.4-10.4); Platelet Count 301 thou/uL (130-400); RBC Distribution Width 11.7 % (11.5-14.5); Red Blood Cell (RBC) Count 4.22 mill/uL (4.20-5.40); White Blood Cell (WBC) Count 14.8 thou/uL (4.8-10.8)
[2021-04-03 16:03] LABS: ALT (SGPT) 12 U/L (8-55); AST (SGOT) 24 U/L (5-34); Albumin 3.7 g/dL (3.5-5.0); Alkaline Phosphatase 76 U/L (40-110); Anion Gap 12 mmol/L (10-20); BUN (Urea Nitrogen) 10 mg/dL (7.0-18.7); Bilirubin, Total 1.1 mg/dL (0.2-1.2); Calc. Creatinine Clearance 0 mL/min (70-130); Calcium 8.8 mg/dL (7.8-10.44); Carbon Dioxide 29 mmol/L (22-29); Chloride 97 mmol/L (98-107); Globulin 3.7 g/dL (2.4-3.5); Glucose 100 mg/dL (70-105); Protein, Total 7.4 g/dL (6.0-8.3); Sodium 135 mmol/L (136-145)
[2021-04-03 16:13] LABS: Potassium 2.8 mmol/L (3.5-5.1)
[2021-04-03] MEDS ORDERED: Acetaminophen 325 MG TAB PO PRN (16:34)
[2021-04-03] MEDS ORDERED: Ondansetron ODT 4 MG TAB PO PRN (16:34)
[2021-04-03] MEDS ORDERED: Ondansetron PF 4 MG/2 ML Vial IVP PRN (16:34)
[2021-04-03] MEDS ORDERED: Potassium Chloride 20 MEQ TAB ONE ×2 (16:38→20:38)
[2021-04-03] MEDS ORDERED: Morphine 2 MG/ML VIAL SLOW IVP PRN (16:40)
[2021-04-03] MEDS ORDERED: HYDROcodone/Acetaminophen 5/325 mg Tablet PO PRN ×2 (16:40)
[2021-04-03] MEDS ORDERED: Sodium Chloride 0.9% 1,000 ML IV SCH ×2 (16:45→19:30)
[2021-04-03] MEDS ORDERED: D5 0.9% NS w/ 20 mEq KCl 1,000 ML IV SCH (17:15)
[2021-04-03 18:23] LABS: Magnesium 2.1 mg/dL (1.6-2.6)
[2021-04-03] MEDS ORDERED: CEFAZOLIN 2 GM in Premix Bag 1 BAG IVPB SCH (18:30)
[2021-04-03] MEDS ORDERED: Potassium Chloride 20 MEQ/100 ML PREMIX BAG ONE (19:35)
[2021-04-03 20:52] LABS: SARS-CoV-2 NAA Rapid Test Not Detected (NotDetected)
[2021-04-03] MEDS ORDERED: Nicotine 14 MG PATCH TD SCH (21:00)
[2021-04-03] MEDS ORDERED: Piperacillin/Tazobactam 3.375 GM in Sodium Chloride 0.9% 100 ML IVPB SCH ×2 (21:00→22:00)
[2021-04-03 21:45] VITALS: BMI 22.3
[2021-04-03 22:06] VITALS: BP 106/62; TEMP 98.1
[2021-04-04 01:11] LABS: Pregnancy Test - Urine (BHCG) Negative (Negative); Pregu Control Background? CLEAR/WHITE (CLR/WHITE); Pregu Control Bar Appear? YES (CONTROL BAR); Specific Gravity 1.016 (1.002-1.036)
[2021-04-04 01:16] LABS: Amphetamine Detected (NotDetected); Barbiturates Screen Not Detected (NotDetected); Benzodiazepine Screen Detected (NotDetected); Cocaine Metabolite Screen Not Detected (NotDetected); Methadone Not Detected (NotDetected); Methamphetamine Detected (NotDetected); Opiate Screen Detected (NotDetected); Oxycodone Screen Not Detected (NotDetected); Phencyclidine (PCP) Not Detected (NotDetected); THC/Cannabinoid Screen Not Detected (NotDetected); Tricyclic Screen Not Detected (NotDetected)
[2021-04-04] MEDS ORDERED: Piperacillin/Tazobactam 3.375 GM VIAL ONE ×3 (01:25→09:19)
[2021-04-04] MEDS ORDERED: Vancomycin 1 GM in Premix Bag 1 BAG IVPB SCH (05:00)
[2021-04-04 05:29] LABS: #Basophils 0.1 thou/uL (0.0-0.2); #Eosinphils 0.1 thou/uL (0.0-0.7); #Neutrophils 7.3 thou/uL (1.40-6.50); %Basophils 0.9 % (0.0-1.0); %Eosinophils 0.8 % (0.0-10.0); %Lymphocytes 18.8 % (21.0-51.0); %Monocytes 9.9 % (0.0-10.0); %Neutrophils 69.7 % (42.0-75.0); Hemoglobin 11.2 g/dL (12.0-16.0); Mean Corpuscular HGB CONC 34.2 g/dL (32.0-36.0); Mean Corpuscular Volume 90.7 fL (78.0-98.0); Mean Platelet Volume 7.2 fL (7.4-10.4); Platelet Count 211 thou/uL (130-400); RBC Distribution Width 11.9 % (11.5-14.5); Red Blood Cell (RBC) Count 3.61 mill/uL (4.20-5.40); White Blood Cell (WBC) Count 10.4 thou/uL (4.8-10.8)
[2021-04-04] MEDS ORDERED: Vancomycin 1 GM/200 ML BAG ONE (05:40)
[2021-04-04] MEDS ORDERED: Acetaminophen 325 MG TAB ONE ×2 (05:45→09:19)
[2021-04-04 06:03] LABS: Anion Gap 15 mmol/L (10-20); BUN (Urea Nitrogen) 7 mg/dL (7.0-18.7); Calc. Creatinine Clearance 123 mL/min (70-130); Calcium 7.8 mg/dL (7.8-10.44); Carbon Dioxide 18 mmol/L (22-29); Chloride 107 mmol/L (98-107); Glucose 70 mg/dL (70-105); Potassium 3.6 mmol/L (3.5-5.1); Sodium 136 mmol/L (136-145)
[2021-04-04] MEDS ORDERED: Enoxaparin Sodium 40 MG/0.4 ML SYRINGE SC SCH (09:00)
[2021-04-04] MEDS ORDERED: HYDROcodone/Acetaminophen 5/325 mg Tablet ONE (09:18)
[2021-04-04] MEDS ORDERED: Nicotine 14 MG PATCH ONE (09:19)
== END 2021-04-04 11:59 | disposition left against medical advice (07) | DRG 872 ==
LOC: ERS 14:41 → ERHOLD 16:32
PROVIDERS: ADMIT Internal Medicine; ATTEND Nurse Practitioner Family
DX: A41.9 Sepsis, unspecified organism (principal); L03.116 Cellulitis of left lower limb; L02.416 Cutaneous abscess of left lower limb; F20.9 Schizophrenia, unspecified; I10 Essential (primary) hypertension; E87.6 Hypokalemia; F15.10 Other stimulant abuse, uncomplicated; F17.210 Nicotine dependence, cigarettes, uncomplicated; M71.562 Other bursitis, not elsewhere classified, left knee; Z79.82 Long term (current) use of aspirin; Z79.899 Other long term (current) drug therapy; Z98.51 Tubal ligation status
CPT/HCPCS: 0240U; 36415; 80048; 80053; 80306; 81025; 83605; 83735; 85025; 87040; 93005; 93010; 96365; 96366; 96368; 96375; J2060; J2270; J2405; J2543; J3370; J3480; J3490; J7050

== ENCOUNTER 2021-04-15 20:40 | Inpatient (IN) | payer MEDICAID, OTHER ==
[2021-04-15] MEDS ORDERED: Ketorolac Tromethamine 30 MG/ML VIAL ONE (21:01)
[2021-04-15] MEDS ORDERED: Acetaminophen 500 MG TAB ONE (21:01)
[2021-04-15 21:46] LABS: Bacteria/HPF None Seen HPF (None Seen); Bilirubin Negative (Negative); Blood, Urine 3+ (Negative); Clarity Clear (Clear); Glucose, Urine (Dipstick) Normal (Negative); Ketone, Urine Negative (Negative); Leukocyte Negative Leu/uL (Negative); Nitrite Negative (Negative); Protein, Urine (Dipstick) Negative (Neg-Trace); RBC/HPF Greater than 50 HPF (0-3); Specific Gravity, Urine 1.015 (1.002-1.036); Squamous Epithelial 0-3 HPF (0-3); Urobilinogen Normal mg/dL (Less than 2); pH, Urine 7.5 (5.0-9.0)
[2021-04-15 21:57] LABS: Hemoglobin 12.1 g/dL (12.0-16.0); Mean Corpuscular Hemoglobin 29.3 pg (27.0-31.0); Mean Corpuscular Volume 88.7 fL (78.0-98.0); Mean Platelet Volume 6.7 fL (7.4-10.4); Platelet Count 223 thou/uL (130-400); RBC Distribution Width 11.6 % (11.5-14.5); Red Blood Cell (RBC) Count 4.12 mill/uL (4.20-5.40); White Blood Cell (WBC) Count 22.1 thou/uL (4.8-10.8)
[2021-04-15] MEDS ORDERED: Cefepime 2 GM VIAL ONE (21:58)
[2021-04-15 22:20] LABS: Band 21 % (5-11); Lymphocytes 3 % (21-51); MDiff Complete? YES; Monocytes 5 % (0-10); Neutrophil 71 % (42-75); Platelet Morphology Comment Appears Adequate; RBC Morphology Normal
[2021-04-15 22:21] LABS: ALT (SGPT) 11 U/L (8-55); AST (SGOT) 14 U/L (5-34); Albumin 3.8 g/dL (3.5-5.0); Alkaline Phosphatase 70 U/L (40-110); Anion Gap 15 mmol/L (10-20); BUN (Urea Nitrogen) 14 mg/dL (7.0-18.7); Bilirubin, Total 0.8 mg/dL (0.2-1.2); Calc. Creatinine Clearance 0 mL/min (70-130); Calcium 9.3 mg/dL (7.8-10.44); Carbon Dioxide 28 mmol/L (22-29); Chloride 94 mmol/L (98-107); Globulin 3.8 g/dL (2.4-3.5); Glucose 118 mg/dL (70-105); Potassium 3.1 mmol/L (3.5-5.1); Protein, Total 7.6 g/dL (6.0-8.3); Sodium 134 mmol/L (136-145)
[2021-04-15] MEDS ORDERED: Vancomycin 1 GM/200 ML BAG ONE (22:34)
[2021-04-15 22:40] LABS: Pregnancy Test - Urine (BHCG) Negative (Negative); Pregu Control Background? CLEAR/WHITE (CLR/WHITE); Pregu Control Bar Appear? YES (CONTROL BAR); Specific Gravity 1.015 (1.002-1.036)
[2021-04-15 23:17] LABS: SARS-CoV-2 NAA Rapid Test Not Detected (NotDetected)
[2021-04-15] MEDS ORDERED: Ondansetron PF 4 MG/2 ML Vial IVP PRN (23:25)
[2021-04-15] MEDS ORDERED: Bisacodyl 5 MG TAB PO PRN (23:25)
[2021-04-15] MEDS ORDERED: Zolpidem Tartrate 5 MG TAB PO PRN (23:25)
[2021-04-15] MEDS ORDERED: hydrALAZINE 20 MG/ML VIAL SLOW IVP PRN (23:28)
[2021-04-15] MEDS ORDERED: Morphine 2 MG/ML VIAL SLOW IVP PRN (23:28)
[2021-04-15] MEDS ORDERED: Labetalol HCl 100 MG/20 ML VIAL SLOW IVP PRN (23:28)
[2021-04-15] MEDS ORDERED: Sodium Chloride 0.9% 1,000 ML IV SCH (23:30)
[2021-04-15] MEDS ORDERED: Lorazepam 1 MG TAB PO PRN (23:42)
[2021-04-15] MEDS ORDERED: Potassium Chloride 20 MEQ TAB ONE (23:52)
[2021-04-15] MEDS ORDERED: Magnesium 2 GM/50 ML BAG (IN WATER) ONE (23:52)
[2021-04-16 01:00] LABS: Lactic Acid 1.3 mmol/L (0.5-2.2)
[2021-04-16 04:21] VITALS: BMI 27.1
[2021-04-16] MEDS: Nicotine 21 MG PATCH TD SCH (04:21)
[2021-04-16] MEDS: Potassium Chloride 20 MEQ in Lactated Ringer's 1,000 ML IV SCH ×2 (04:22→12:13)
[2021-04-16 05:31] LABS: Band 17 % (5-11); Hemoglobin 10.9 g/dL (12.0-16.0); Lymphocytes 2 % (21-51); MDiff Complete? YES; Mean Corpuscular HGB CONC 34.2 g/dL (32.0-36.0); Mean Corpuscular Hemoglobin 30.7 pg (27.0-31.0); Mean Corpuscular Volume 89.8 fL (78.0-98.0); Mean Platelet Volume 6.9 fL (7.4-10.4); Monocytes 2 % (0-10); Neutrophil 79 % (42-75); Platelet Count 177 thou/uL (130-400); Platelet Morphology Comment Appears Adequate; RBC Distribution Width 11.8 % (11.5-14.5); Red Blood Cell (RBC) Count 3.56 mill/uL (4.20-5.40); White Blood Cell (WBC) Count 17.2 thou/uL (4.8-10.8)
[2021-04-16 05:35] LABS: Anion Gap 10 mmol/L (10-20); BUN (Urea Nitrogen) 14 mg/dL (7.0-18.7); BUN/Creatinine Ratio 15.05; Calc. Creatinine Clearance 103 mL/min (70-130); Carbon Dioxide 28 mmol/L (22-29); Chloride 99 mmol/L (98-107); Glucose 128 mg/dL (70-105); Phosphorus 2.7 mg/dL (2.3-4.7); Sodium 134 mmol/L (136-145)
[2021-04-16 05:37] LABS: Potassium 2.7 mmol/L (3.5-5.1)
[2021-04-16] MEDS ORDERED: Potassium Chloride 20 MEQ TAB PO SCH ×2 (06:45→11:00)
[2021-04-16] MEDS: Cefepime 1 GM in Sodium Chloride 0.9% 100 ML IVPB SCH ×2 (08:30→21:12)
[2021-04-16] MEDS: Acetaminophen 325 MG TAB PO PRN ×2 (08:37→16:15)
[2021-04-16] MEDS: Aspirin 81 mg Enteric Coated Tablet PO SCH (08:37)
[2021-04-16] MEDS: Enoxaparin Sodium 40 MG/0.4 ML SYRINGE SC SCH (08:37)
[2021-04-16] MEDS: Famotidine 20 MG TAB PO SCH ×2 (08:37→21:12)
[2021-04-16 10:36] LABS: Magnesium 2.1 mg/dL (1.6-2.6)
[2021-04-16] MEDS: Vancomycin 1 GM in Premix Bag 1 BAG IVPB SCH (10:37)
[2021-04-16 15:11] LABS: Bacteria/HPF None Seen HPF (None Seen); Bilirubin Negative (Negative); Blood, Urine 3+ (Negative); Clarity Clear (Clear); Glucose, Urine (Dipstick) Normal (Negative); Ketone, Urine Negative (Negative); Leukocyte Negative Leu/uL (Negative); Nitrite Negative (Negative); Protein, Urine (Dipstick) 10 mg/dL (Neg-Trace); RBC/HPF Greater than 50 HPF (0-3); Specific Gravity, Urine 1.013 (1.002-1.036); Urobilinogen Normal mg/dL (Less than 2); WBC/HPF 0-3 HPF (0-3); pH, Urine 7.5 (5.0-9.0)
[2021-04-16 15:13] LABS: Urine Culture Reflex No No
[2021-04-16] MEDS: HYDROcodone/Acetaminophen 7.5/325 mg Tablet PO PRN (15:42)
[2021-04-17] MEDS: Acetaminophen 325 MG TAB PO PRN (01:43)
[2021-04-17] MEDS: Nicotine 21 MG PATCH TD SCH ×2 (01:44→21:45)
[2021-04-17] MEDS: Vancomycin 1 GM in Premix Bag 1 BAG IVPB SCH ×3 (02:26→21:44)
[2021-04-17] MEDS: HYDROcodone/Acetaminophen 7.5/325 mg Tablet PO PRN ×2 (04:24→16:41)
[2021-04-17] MEDS: Potassium Chloride 20 MEQ in Lactated Ringer's 1,000 ML IV SCH ×3 (04:25→16:43)
[2021-04-17 05:54] LABS: #Basophils 0.1 thou/uL (0.0-0.2); #Lymphocytes 1.2 thou/uL (1.20-3.40); #Monocytes 0.7 thou/uL (0.11-0.59); #Neutrophils 8.2 thou/uL (1.40-6.50); %Basophils 0.5 % (0.0-1.0); %Eosinophils 0.1 % (0.0-10.0); %Lymphocytes 12.2 % (21.0-51.0); %Monocytes 6.5 % (0.0-10.0); %Neutrophils 80.7 % (42.0-75.0); Hemoglobin 10.1 g/dL (12.0-16.0); Mean Corpuscular HGB CONC 34.1 g/dL (32.0-36.0); Mean Corpuscular Hemoglobin 30.6 pg (27.0-31.0); Mean Corpuscular Volume 89.9 fL (78.0-98.0); Mean Platelet Volume 7.5 fL (7.4-10.4); Platelet Count 165 thou/uL (130-400); RBC Distribution Width 11.8 % (11.5-14.5); Red Blood Cell (RBC) Count 3.31 mill/uL (4.20-5.40); White Blood Cell (WBC) Count 10.2 thou/uL (4.8-10.8)
[2021-04-17 06:15] LABS: Anion Gap 11 mmol/L (10-20); BUN (Urea Nitrogen) 11 mg/dL (7.0-18.7); Calc. Creatinine Clearance 117 mL/min (70-130); Calcium 8.2 mg/dL (7.8-10.44); Carbon Dioxide 23 mmol/L (22-29); Chloride 103 mmol/L (98-107); Glucose 92 mg/dL (70-105); Potassium 3.3 mmol/L (3.5-5.1); Sodium 134 mmol/L (136-145)
[2021-04-17] MEDS: Cefepime 1 GM in Sodium Chloride 0.9% 100 ML IVPB SCH ×2 (08:41→20:55)
[2021-04-17] MEDS: PALIPERIDONE 1.5 MG PO SCH (08:45)
[2021-04-17] MEDS: Aspirin 81 mg Enteric Coated Tablet PO SCH (08:46)
[2021-04-17] MEDS: Oxybutynin ER 5 MG TAB PO SCH (08:46)
[2021-04-17] MEDS: Nicotine 14 MG PATCH TD SCH ×2 (08:46→08:48)
[2021-04-17] MEDS: Famotidine 20 MG TAB PO SCH ×3 (08:46→21:30)
[2021-04-17] MEDS: Enoxaparin Sodium 40 MG/0.4 ML SYRINGE SC SCH (08:46)
[2021-04-17] MEDS: Hydrochlorothiazide 25 MG TAB PO SCH (08:46)
[2021-04-17] MEDS ORDERED: PALIPERIDONE 1.5 MG PO SCH (09:00)
[2021-04-17 11:35] LABS: Vancomycin, Trough 12.7 ug/mL
[2021-04-17] MEDS: Bacitracin 1 PK TOP SCH (17:26)
[2021-04-18] MEDS: Vancomycin 1 GM in Premix Bag 1 BAG IVPB SCH ×2 (04:28→10:57)
[2021-04-18] MEDS: Potassium Chloride 20 MEQ in Lactated Ringer's 1,000 ML IV SCH (04:29)
[2021-04-18] MEDS: HYDROcodone/Acetaminophen 7.5/325 mg Tablet PO PRN (05:41)
[2021-04-18 08:12] VITALS: BP 166/77; TEMP 98
[2021-04-18] MEDS: Aspirin 81 mg Enteric Coated Tablet PO SCH (10:17)
[2021-04-18] MEDS: Enoxaparin Sodium 40 MG/0.4 ML SYRINGE SC SCH (10:17)
[2021-04-18] MEDS: Bacitracin 1 PK TOP SCH (10:17)
[2021-04-18] MEDS: Cefepime 1 GM in Sodium Chloride 0.9% 100 ML IVPB SCH (10:17)
[2021-04-18] MEDS: Hydrochlorothiazide 25 MG TAB PO SCH (10:17)
[2021-04-18] MEDS: Famotidine 20 MG TAB PO SCH (10:17)
[2021-04-18] MEDS: Nicotine 14 MG PATCH TD SCH (10:17)
[2021-04-18] MEDS: Oxybutynin ER 5 MG TAB PO SCH (10:18)
[2021-04-18] MEDS: PALIPERIDONE 1.5 MG PO SCH (10:18)
== END 2021-04-18 10:26 | disposition left against medical advice (07) | DRG 871 ==
LOC: ERS 20:40 → 3SE 23:37
PROVIDERS: ADMIT Internal Medicine; ATTEND Internal Medicine
DX: A41.9 Sepsis, unspecified organism (principal); G92 Toxic encephalopathy; L03.116 Cellulitis of left lower limb; L03.115 Cellulitis of right lower limb; L02.416 Cutaneous abscess of left lower limb; Z20.822 Contact with and (suspected) exposure to COVID-19; F20.9 Schizophrenia, unspecified; F17.210 Nicotine dependence, cigarettes, uncomplicated; F15.10 Other stimulant abuse, uncomplicated; E87.6 Hypokalemia; R31.29 Other microscopic hematuria; F14.10 Cocaine abuse, uncomplicated; T40.2X5A Adverse effect of other opioids, initial encounter; T42.4X5A Adverse effect of benzodiazepines, initial encounter; Z53.29 Procedure and treatment not carried out because of patient's decision for other reasons; Z79.899 Other long term (current) drug therapy; Z79.82 Long term (current) use of aspirin; Z86.19 Personal history of other infectious and parasitic diseases; Z98.51 Tubal ligation status
CPT/HCPCS: 0240U; 36415; 70450; 71045; 80048; 80053; 80069; 80202; 81001; 81003; 81015; 81025; 83605; 83735; 83880; 84484; 85025; 86140; 87040; 87086; 93005; 93306; 96365; 96367; 96375; J0360; J0692; J1650; J1885; J3370; J3475; J3480; J3490; J7120

== ENCOUNTER 2021-05-27 06:13 | Emergency (ER) | payer MEDICAID, OTHER ==
[2021-05-27] MEDS ORDERED: hydrOXYzine 25 MG TAB ONE (06:53)
== END 2021-05-27 08:45 | disposition home or self-care (01) ==
LOC: ERS 06:13
DX: S02.2XXA Fracture of nasal bones, initial encounter for closed fracture (principal); I10 Essential (primary) hypertension; F17.200 Nicotine dependence, unspecified, uncomplicated; Y04.0XXA Assault by unarmed brawl or fight, initial encounter
CPT/HCPCS: 70486

== ENCOUNTER 2021-09-08 18:19 | Emergency (ER) | payer OTHER, SELFPAY | END 2021-09-08 19:22 | disposition home or self-care (01) | LOC: ERS 18:19 | DX: K03.81 Cracked tooth (principal); K02.9 Dental caries, unspecified; I10 Essential (primary) hypertension; F17.210 Nicotine dependence, cigarettes, uncomplicated; Z87.19 Personal history of other diseases of the digestive system | CPT/HCPCS: 99282 ==

== ENCOUNTER 2022-01-05 17:49 | Emergency (ER) | payer SELFPAY | END 2022-01-05 19:15 | disposition home or self-care (01) | LOC: ERS 17:49 | DX: K02.9 Dental caries, unspecified (principal); K03.81 Cracked tooth; B82.0 Intestinal helminthiasis, unspecified; I10 Essential (primary) hypertension; F17.210 Nicotine dependence, cigarettes, uncomplicated | CPT/HCPCS: 99282 ==

== ENCOUNTER 2022-03-06 16:09 | Emergency (ER) | payer OTHER ==
[2022-03-06] MEDS ORDERED: Lorazepam 1 MG TAB ONE (16:41)
[2022-03-06 16:54] LABS: Bilirubin Negative (Negative); Blood, Urine Negative (Negative); Clarity Clear (Clear); Glucose, Urine (Dipstick) Normal (Negative); Ketone, Urine Negative (Negative); Leukocyte Negative Leu/uL (Negative); Nitrite Negative (Negative); Protein, Urine (Dipstick) 20 mg/dL (Neg-Trace); Specific Gravity, Urine 1.031 (1.002-1.036); Urobilinogen Normal mg/dL (Less than 2)
[2022-03-06 16:56] LABS: Pregnancy Test - Urine (BHCG) Negative (Negative); Pregu Control Background? CLEAR/WHITE (CLR/WHITE); Pregu Control Bar Appear? YES (CONTROL BAR); Specific Gravity 1.031 (1.002-1.036)
[2022-03-06 16:59] LABS: #Eosinphils 0.1 thou/uL (0.0-0.7); #Lymphocytes 1.8 thou/uL (1.20-3.40); #Monocytes 0.6 thou/uL (0.11-0.59); #Neutrophils 4.1 thou/uL (1.40-6.50); %Basophils 0.7 % (0.0-1.0); %Eosinophils 1.7 % (0.0-10.0); %Lymphocytes 26.9 % (21.0-51.0); %Neutrophils 61.7 % (42.0-75.0); Hemoglobin 13.1 g/dL (12.0-16.0); Mean Corpuscular HGB CONC 33.8 g/dL (32.0-36.0); Mean Corpuscular Hemoglobin 31.1 pg (27.0-31.0); Mean Platelet Volume 7.8 fL (7.4-10.4); Platelet Count 227 thou/uL (130-400); RBC Distribution Width 11.4 % (11.5-14.5); Red Blood Cell (RBC) Count 4.22 mill/uL (4.20-5.40); White Blood Cell (WBC) Count 6.7 thou/uL (4.8-10.8)
[2022-03-06 17:04] LABS: Amphetamine Not Detected (NotDetected); Barbiturates Screen Not Detected (NotDetected); Benzodiazepine Screen Not Detected (NotDetected); Cocaine Metabolite Screen Not Detected (NotDetected); Methadone Not Detected (NotDetected); Methamphetamine Not Detected (NotDetected); Opiate Screen Not Detected (NotDetected); Oxycodone Screen Not Detected (NotDetected); Phencyclidine (PCP) Not Detected (NotDetected); THC/Cannabinoid Screen Not Detected (NotDetected); Tricyclic Screen Not Detected (NotDetected)
[2022-03-06 17:20] LABS: Acetaminophen Less than 10.0 mcg/mL (10.0-30.0); Alcohol Less than 10 mg/dL (Less than 10); Salicylate Less than 8.0 mg/dL (15.0-30.0)
[2022-03-06 17:27] LABS: ALT (SGPT) 8 U/L (8-55); AST (SGOT) 15 U/L (5-34); Albumin 3.9 g/dL (3.5-5.0); Alkaline Phosphatase 70 U/L (40-110); Anion Gap 13 mmol/L (10-20); BUN (Urea Nitrogen) 16 mg/dL (7.0-18.7); Bilirubin, Total 0.4 mg/dL (0.2-1.2); CK (CPK) 83 U/L (29-168); Calc. Creatinine Clearance 0 mL/min (70-130); Calcium 9.7 mg/dL (7.8-10.44); Carbon Dioxide 28 mmol/L (22-29); Chloride 104 mmol/L (98-107); Estimated GFR 95; Glucose 96 mg/dL (70-105); Potassium 3.3 mmol/L (3.5-5.1); Protein, Total 6.9 g/dL (6.0-8.3); Sodium 142 mmol/L (136-145)
== END 2022-03-07 09:35 | disposition home or self-care (01) ==
LOC: ERS 16:09
DX: F32.A Depression, unspecified (principal); Z79.899 Other long term (current) drug therapy; I10 Essential (primary) hypertension; F17.210 Nicotine dependence, cigarettes, uncomplicated
CPT/HCPCS: 36415; 80053; 80306; 80307; 81003; 81025; 82550; 84443; 85025; 93005

== ENCOUNTER 2022-05-23 13:29 | Emergency (ER) | payer OTHER ==
[2022-05-23] MEDS ORDERED: Ketorolac Tromethamine 30 MG/ML VIAL ONE (15:40)
== END 2022-05-23 16:15 | disposition home or self-care (01) ==
LOC: ERS 13:29
DX: S90.31XA Contusion of right foot, initial encounter (principal); I10 Essential (primary) hypertension; F17.210 Nicotine dependence, cigarettes, uncomplicated; W20.8XXA Other cause of strike by thrown, projected or falling object, initial encounter; Z79.899 Other long term (current) drug therapy
CPT/HCPCS: 96372; J1885

== ENCOUNTER 2022-06-13 16:12 | Emergency (ER) | payer OTHER | END 2022-06-13 17:30 | disposition left against medical advice (07) | LOC: ERS 16:12 | DX: Z53.21 Procedure and treatment not carried out due to patient leaving prior to being seen by health care provider (principal) ==

== ENCOUNTER 2022-09-04 13:45 | Outpatient (CLI) | payer OTHER | END 2022-09-04 13:46 | disposition home or self-care (01) | LOC: BICMAMMO 13:45 | PROVIDERS: ATTEND Nurse Practitioner Family | DX: Z13.820 Encounter for screening for osteoporosis (principal); F17.200 Nicotine dependence, unspecified, uncomplicated; M85.89 Other specified disorders of bone density and structure, multiple sites | CPT/HCPCS: 77080 ==

== ENCOUNTER 2022-10-13 18:47 | Emergency (ER) | payer OTHER, SELFPAY | END 2022-10-13 20:18 | disposition home or self-care (01) | LOC: ERS 18:47 | DX: M17.11 Unilateral primary osteoarthritis, right knee (principal) | CPT/HCPCS: 99283 ==

== ENCOUNTER 2022-11-22 19:56 | Emergency (ER) | payer OTHER | END 2022-11-22 20:20 | disposition left against medical advice (07) | LOC: ERS 19:56 | DX: Z53.21 Procedure and treatment not carried out due to patient leaving prior to being seen by health care provider (principal) ==

== ENCOUNTER 2023-06-25 13:07 | Outpatient (CLI) | payer OTHER | END 2023-06-25 13:08 | disposition home or self-care (01) | LOC: BICRAD 13:07 | PROVIDERS: ATTEND Physician Assistant Surgical | DX: S82.002D Unspecified fracture of left patella, subsequent encounter for closed fracture with routine healing (principal); S82.871D Displaced pilon fracture of right tibia, subsequent encounter for closed fracture with routine healing; M17.12 Unilateral primary osteoarthritis, left knee; Z98.890 Other specified postprocedural states ==

== ENCOUNTER 2023-09-26 14:23 | Outpatient (CLI) | payer OTHER ==
[2023-09-26 16:34] LABS: Anion Gap 15 mmol/L (10-20); BUN (Urea Nitrogen) 10 mg/dL (9.8-20.1); Calc. Creatinine Clearance 0 mL/min (70-130); Calcium 9.4 mg/dL (7.8-10.44); Carbon Dioxide 26 mmol/L (22-29); Chloride 104 mmol/L (98-107); Estimated GFR 82; Glucose 108 mg/dL (70-105); Sodium 141 mmol/L (136-145)
== END 2023-09-26 14:24 | disposition home or self-care (01) ==
LOC: LABBT 14:23
PROVIDERS: ATTEND Orthopaedic Surgery
DX: Z01.818 Encounter for other preprocedural examination (principal); S82.201K Unspecified fracture of shaft of right tibia, subsequent encounter for closed fracture with nonunion
CPT/HCPCS: 80048; 93005; 93010

== ENCOUNTER 2023-09-27 05:48 | Observation (INO) | payer OTHER ==
[2023-09-25 16:09] VITALS: BMI 27.8
[2023-09-27] MEDS ORDERED: fentaNYL PF 100 MCG/2 ML SYRINGE ONE (07:13)
[2023-09-27] MEDS ORDERED: PROPOFOL 40 ML ONE (07:13)
[2023-09-27] MEDS ORDERED: Midazolam HCl 2 mg/2 ml Vial ONE (07:14)
[2023-09-27] MEDS ORDERED: Lidocaine 2% PF 5 ML VIAL ONE (07:14)
[2023-09-27] MEDS ORDERED: Famotidine/PF 20 mg/2ml Vial ONE (07:14)
[2023-09-27] MEDS ORDERED: Sodium Chloride 0.9% 100 ML ONE (07:15)
[2023-09-27] MEDS ORDERED: CEFAZOLIN 2 GM VIAL ONE (07:15)
[2023-09-27] MEDS ORDERED: Rocuronium Bromide 10 MG/ML (10ML VIAL) ONE (07:45)
[2023-09-27] MEDS ORDERED: CEFAZOLIN 1 GM VIAL ONE (07:55)
[2023-09-27] MEDS ORDERED: Dexamethasone 4 mg/ml Vial ONE (08:04)
[2023-09-27] MEDS ORDERED: Ketorolac Tromethamine 30 MG/ML VIAL IVP PRN ×2 (08:15)
[2023-09-27] MEDS ORDERED: HYDROmorphone 2 MG/ML VIAL SLOW IVP PRN (08:15)
[2023-09-27] MEDS ORDERED: Ondansetron HCl/PF 4 MG/2 ML Vial IVP PRN (08:15)
[2023-09-27] MEDS ORDERED: PACU-Morphine 4MG/ML VIAL SLOW IVP PRN (08:15)
[2023-09-27] MEDS ORDERED: Promethazine HCl 25 MG/ML VIAL IM PRN (08:15)
[2023-09-27] MEDS ORDERED: HYDROmorphone 2 MG/ML VIAL ONE (08:18)
[2023-09-27] MEDS ORDERED: Bupivacaine PF 0.5% 30 ML VIAL ONE (08:27)
[2023-09-27] MEDS ORDERED: Esmolol 100 MG/10 ML VIAL ONE (08:34)
[2023-09-27] MEDS ORDERED: diphenhydrAMINE 50 MG/ML VIAL ONE (08:56)
[2023-09-27] MEDS ORDERED: Fentanyl 250 MCG/5 ML VIAL ONE (09:43)
[2023-09-27] MEDS ORDERED: Dexmedetomidine 200 MCG/2 ML VIAL ONE (09:43)
[2023-09-27] MEDS ORDERED: Vancomycin 1 GM VIAL ONE (10:09)
[2023-09-27] MEDS ORDERED: SUGAMMADEX SODIUM 200 MG/2 ML VIAL ONE (10:21)
[2023-09-27] MEDS ORDERED: Ketorolac Tromethamine 30 MG (1 mL) VIAL ONE (10:43)
[2023-09-27] MEDS ORDERED: Metoclopramide HCl 10 MG (2 mL) VIAL ONE (10:43)
[2023-09-27] MEDS ORDERED: Ondansetron PF 4 MG/2 ML Vial ONE (10:43)
[2023-09-27] MEDS ORDERED: RENALLY ADJUST ABX FS PRN (11:49)
[2023-09-27] MEDS: CEFAZOLIN 2 GM in Sodium Chloride 0.9% 100 ML IVPB SCH (17:49)
[2023-09-27] MEDS: HYDROcodone/Acetaminophen 10/325 mg Tablet PO PRN (17:52)
[2023-09-28 08:45] VITALS: BP 133/82; TEMP 97.8
[2023-09-28] MEDS: Lactulose 20 GM (30 mL) UDCUP PO SCH (08:46)
[2023-09-28] MEDS: Hydrochlorothiazide 25 MG TAB PO SCH (08:46)
[2023-09-28] MEDS: Atorvastatin Calcium 20 MG TAB PO SCH (08:46)
== END 2023-09-28 13:25 | disposition home or self-care (01) ==
LOC: SDC 05:48 → SJJU 11:49
PROVIDERS: ADMIT Orthopaedic Surgery; ATTEND Orthopaedic Surgery
PROC: 0SGF0JZ Fusion of Right Ankle Joint with Synthetic Substitute, Open Approach (ICD-10-PCS; principal; 2023-09-27)
PROC: 0SPF0JZ Removal of Synthetic Substitute from Right Ankle Joint, Open Approach (ICD-10-PCS; 2023-09-27)
DX: M19.171 Post-traumatic osteoarthritis, right ankle and foot (principal); S82.871D Displaced pilon fracture of right tibia, subsequent encounter for closed fracture with routine healing; G43.909 Migraine, unspecified, not intractable, without status migrainosus; I10 Essential (primary) hypertension; F17.200 Nicotine dependence, unspecified, uncomplicated; Z98.890 Other specified postprocedural states; Z79.899 Other long term (current) drug therapy
CPT/HCPCS: 96365; C1713; G0378; J0665; J0690; J1100; J1170; J1200; J1885; J2001; J2250; J2405; J2704; J2765; J3010; J3370; J3490; S0028

== ENCOUNTER 2024-08-12 12:23 | Emergency (ER) | payer OTHER ==
[2024-08-12 12:51] LABS: Bacteria/HPF None Seen HPF (None Seen); Bilirubin Negative (Negative); Blood, Urine Negative (Negative); CAUTI Indications for Culture Pelvic or flank pain; Clarity Clear (Clear); Glucose, Urine (Dipstick) Normal (Negative); Ketone, Urine Negative (Negative); Leukocyte 25 Leu/uL (Negative); Nitrite Negative (Negative); Protein, Urine (Dipstick) Negative (Neg-Trace); RBC/HPF 0-3 HPF (0-3); Specific Gravity, Urine 1.022 (1.002-1.036); Squamous Epithelial 0-3 HPF (0-3); Urobilinogen Normal mg/dL (Less than 2)
[2024-08-12 12:53] LABS: Urine Culture Reflex No No
[2024-08-12 13:25] LABS: #Basophils 0.06 10x3/uL (0.0-0.2); %Basophils 0.8 % (0.0-1.0); %Eosinophils 1.9 % (0.0-10.0); %Lymphocytes 29.9 % (21.0-51.0); %Monocytes 7.3 % (0.0-10.0); %Neutrophils 59.4 % (42.0-75.0); Hematocrit 43.7 % (36.0-47.0); Hemoglobin 14.7 g/dL (12.0-16.0); Mean Corpuscular HGB CONC 33.6 g/dL (32.0-36.0); Mean Corpuscular Hemoglobin 30.2 pg (27.0-31.0); Mean Corpuscular Volume 89.9 fL (78.0-98.0); Mean Platelet Volume 9.5 fL (7.4-10.4); Platelet Count 342 10x3/uL (130-400); RBC Distribution Width 12.8 % (11.5-14.5); Red Blood Cell (RBC) Count 4.86 mill/uL (4.20-5.40)
[2024-08-12] MEDS ORDERED: Aspirin 325 MG TAB ONE (13:27)
[2024-08-12 13:55] LABS: ALT (SGPT) 17 U/L (8-55); AST (SGOT) 16 U/L (5-34); Albumin 3.9 g/dL (3.5-5.0); Anion Gap 14 mmol/L (10-20); BUN (Urea Nitrogen) 10 mg/dL (9.8-20.1); Bilirubin, Total 0.5 mg/dL (0.2-1.2); Calc. Creatinine Clearance 0 mL/min (70-130); Calcium 9.8 mg/dL (7.8-10.44); Carbon Dioxide 23 mmol/L (22-29); Chloride 107 mmol/L (98-107); Estimated GFR 75; Globulin 4.1 g/dL (2.4-3.5); Glucose 104 mg/dL (70-105); Lipase 34 U/L (8-78); Potassium 3.8 mmol/L (3.5-5.1); Sodium 140 mmol/L (136-145)
[2024-08-12 14:09] LABS: Troponin I 0.024 ng/mL (< 0.028)
[2024-08-12 14:18] LABS: Alkaline Phosphatase 105 U/L (40-110)
== END 2024-08-12 15:34 | disposition home or self-care (01) ==
LOC: ERS 12:23
DX: R07.89 Other chest pain (principal); I10 Essential (primary) hypertension; Z79.899 Other long term (current) drug therapy
CPT/HCPCS: 36415; 71045; 74176; 80053; 81001; 83690; 84484; 85025; 87428; 93005

== ENCOUNTER 2025-05-25 11:29 | Outpatient (CLI) | payer OTHER ==
[2025-05-25 12:43] LABS: #Basophils 0.08 10x3/uL (0.0-0.2); #Eosinophils 0.14 10x3/uL (0.0-0.7); #Monocytes 0.68 10x3/uL (0.11-0.59); #Neutrophils 7.26 10x3/uL (1.40-6.50); %Basophils 0.7 % (0.0-1.0); %Eosinophils 1.3 % (0.0-10.0); %Lymphocytes 24.8 % (21.0-51.0); %Monocytes 6.2 % (0.0-10.0); %Neutrophils 66.5 % (42.0-75.0); Hematocrit 42.8 % (36.0-47.0); Hemoglobin 14.0 g/dL (12.0-16.0); Mean Corpuscular Hemoglobin 29.4 pg (27.0-31.0); Mean Corpuscular Volume 89.9 fL (78.0-98.0); Platelet Count 311 10x3/uL (130-400); Red Blood Cell (RBC) Count 4.76 mill/uL (4.20-5.40); White Blood Cell (WBC) Count 10.93 10x3/uL (4.8-10.8)
[2025-05-25 13:19] LABS: Anion Gap 15 mmol/L (10-20); BUN (Urea Nitrogen) 11 mg/dL (9.8-20.1); Calc. Creatinine Clearance 0 mL/min (70-130); Calcium 9.6 mg/dL (7.8-10.44); Carbon Dioxide 27 mmol/L (22-29); Chloride 102 mmol/L (98-107); Glucose 117 mg/dL (70-105); Potassium 3.1 mmol/L (3.5-5.1); Sodium 141 mmol/L (136-145)
== END 2025-05-25 11:30 | disposition home or self-care (01) ==
LOC: LABBT 11:29
PROVIDERS: ATTEND Nurse Practitioner Family
DX: Z01.812 Encounter for preprocedural laboratory examination (principal); I73.9 Peripheral vascular disease, unspecified
CPT/HCPCS: 80048; 85025

== ENCOUNTER 2025-05-26 08:46 | Day surgery (SDC) | payer OTHER ==
[2025-05-25 12:05] VITALS: BMI 28.8
== END 2025-05-26 13:00 | disposition home or self-care (01) ==
LOC: SDC 08:46
PROVIDERS: ATTEND Thoracic Surgery (Cardiothoracic Vascular Surgery)
PROC: B400YZZ Plain Radiography of Abdominal Aorta using Other Contrast (ICD-10-PCS; principal; 2025-05-26)
DX: I73.9 Peripheral vascular disease, unspecified (principal); I10 Essential (primary) hypertension; F17.200 Nicotine dependence, unspecified, uncomplicated; Z90.79 Acquired absence of other genital organ(s)
CPT/HCPCS: 36140; 36247; 75716; 99152; C1769; C1887; C1894

== ENCOUNTER 2025-06-01 14:10 | Outpatient (CLI) | payer MEDICAID | END 2025-06-01 14:11 | disposition home or self-care (01) | LOC: CT 14:10 | PROVIDERS: ATTEND Family Medicine | DX: Z12.2 Encounter for screening for malignant neoplasm of respiratory organs (principal); F17.210 Nicotine dependence, cigarettes, uncomplicated; N95.0 Postmenopausal bleeding; R93.5 Abnormal findings on diagnostic imaging of other abdominal regions, including retroperitoneum | CPT/HCPCS: 71271; 76856 ==